=== PATIENT | male | born 1945 | race Caucasian/White ===

== ENCOUNTER 2018-01-21 10:15 | Emergency (ER) | payer MEDICARE, OTHER ==
[2018-01-21 10:45] VITALS: BP 144/86
--- NOTE | 2018-01-21 10:53 | UC ---
Eye Complaint HPI - HPI Summary HPI Summary: Patient is 72 year old gentleman who presents today for a foreign body in the right eye for about 4 days now. He reports that he was working with a drill grinder and something flew from it and got stuck in his eye, he is not sure if it is metallic. Patient attempted to remove this with a q-tip and was unsuccessful. . There is increase irritation, redness of the eye and increased tearing. - History of Current Complaint Chief Complaint: UCEye Stated Complaint: RIGHT EYE COMPLAINT Time Seen by Provider: 01/21/18 10:42 Pain Intensity: 3 - Allergies/Home Medications Allergies/Adverse Reactions: Allergies Allergy/AdvReac Type Severity Reaction Status Date / Time No Known Allergies Allergy Verified 01/21/18 10:45 Home Medications: Home Medications Metoprolol Succinate [Metoprolol Succinate ER] 25 mg PO 01/21/18 [History] Pravastatin (NF) [Pravachol (NF)] 40 mg PO 01/21/18 [History] PMH/Surg Hx/FS Hx/Imm Hx Previously Healthy: Yes Endocrine History: Dyslipidemia Other Endocrine History: negative Cardiovascular History: Other - Supraventricular tachycardia Other Cardiovascular History: negative Other Respiratory History: negative Other GI/ History: negative Other Neurological History: negative Other Psychological History: negative Cancer History: Prostate Cancer Other Cancer History: negative - Surgical History Surgical History: Yes - Prostrate surgery - Social History Alcohol Use: Daily Substance Use Type: None Smoking Status (MU): Never Smoked Tobacco Review of Systems All Other Systems Reviewed And Are Negative: Yes Constitutional: Positive: Negative Skin: Positive: Negative Eyes: Positive: Blurred Vision, Eye Redness, Photophobia, Other - Increased lacrimation ENT: Positive: Negative Respiratory: Positive: Negative Cardiovascular: Positive: Negative Gastrointestinal: Positive: Negative Genitourinary: Positive: Negative Motor: Positive: Negative Neurovascular: Positive: Negative Musculoskeletal: Positive: Negative Neurological: Positive: Negative Psychological: Positive: Negative Is Patient Immunocompromised?: No Physical Exam - Summary Physical Exam Summary: Physical Exam: Const: Appears well. No signs of apparent distress present. Alert and oriented x 3. Musculo: Walks with a normal gait. Head/Face: Atraumatic, normocephalic on inspection. Eyes: EOMI and PERRLA in both eyes. Conjunctival redness. There is a small zhanna noted at 9 o'clock position in the cornea. ENT: Hearing normal, TM normal appearing bilaterally . Respiratory: Respirations are unlabored. Lungs clear to auscultation bilaterally, no wheezing , rhonchi or rales noted . CVS: Regular rate and Rhythm, S1S2 normal , no murmurs identified. Extremities: Peripheral circulation is grossly normal. Pulses 2+ Abdomen : Soft non tender , nondistended , Bowel sounds present . No guarding , rebound tenderness or rigidity noted. Skin: No lesions or rash located on the upper extremities or on the lower extremities. Neuro: Cranial nerves II to XII intact, motor and sensory intact. DTR Intact bilaterally. Mood is normal. Affect is normal. Triage Information Reviewed: Yes Vital Signs: Initial Vital Signs Temp 97.6 F 01/21/18 10:37 Pulse 58 01/21/18 10:37 Resp 18 01/21/18 10:37 BP 144/86 01/21/18 10:37 Pulse Ox 98 01/21/18 10:37 Vital Signs Reviewed: Yes Procedures - Eye Procedure Right Eye FB Removal: removal w/ needle - after local anesthesia with tetracaine 0.5% Eye Complaint Course/Dx - Course Course Of Treatment: During the visit today, after local anesthesia with tetracaine and evaluation with fluorescein stain, a small foreign body was identified at the 9 o'clock position- looks like a metal zhanna . There was no other area of abrasion noted. Under sterile conditions using an 18-gauge needle , the zhanna of metal was removed and he tolerated the procedure well. He was prescribed antibiotic eyedrops and will follow up with ophthalmology . Patient expressed understanding . - Differential Dx/Diagnosis Provider Diagnoses: Right eye foreign body Discharge - Sign-Out/Discharge Documenting (check all that apply): Patient Departure All imaging exams completed and their final reports reviewed: No Studies - Discharge Plan Condition: Stable Disposition: HOME Prescriptions: Ciprofloxacin 0.3% OPTH.KIN* [Cipro 0.3% Opth*] 1 drop RIGHT EYE Q4H 5 Days #1 btl Patient Education Materials: Eye Foreign Body (ED) Referrals: Dashawn Nath MD [Primary Care Provider] - Anival Oliver MD [Medical Doctor] - 3 Days Additional Instructions: Small foreign body was removed, start using eyedrops. Follow-up with ophthalmology in 3-5 days if no improvement. Patients blood pressure slightly high in Urgent care today , plan follow up with PCP for better control Return to Urgent care / ER if symptoms get worse. - Billing Disposition and Condition Condition: STABLE Disposition: Home
[2018-01-21] MEDS ORDERED: Tetracaine 0.5% OPTH.SOL 4 ML* 1 DROP BTL RIGHT EYE ONE (10:57)
[2018-01-21] MEDS ORDERED: Fluorescein Sodium TOPICAL* 1 MG TEST STRIP OPHTHALMIC ONE (10:59)
== END 2018-01-21 11:43 | disposition home or self-care (01) ==
LOC: UCEAST 10:15
DX: T15.01XA Foreign body in cornea, right eye, initial encounter (principal); X58.XXXA Exposure to other specified factors, initial encounter; Y92.9 Unspecified place or not applicable
CPT/HCPCS: 65220; 99211; 99212; A9270-GY; G0463